=== PATIENT | female | born 1995 | race Hispanic/Latino ===

== ENCOUNTER 2019-04-07 18:28 | Inpatient (IN) | payer MEDICAID ==
--- NOTE | 2019-04-07 18:33 | Event Note ---
ED Screening Note ED Screening Note: BABY 03/31 BABY IN NICU BC 28 WEEKS- [facility] VAG DELIVERY BIPOLOAR SHIZO WITH PTSD SZ RX OFF MEDS ZOLOFT, LAMICTAL HAS APPNT NEXT WEEK This initial assessment/diagnostic orders/clinical plan/treatment(s) is/are subject to change based on patients health status, clinical progression and re-assessment by fellow clinical providers in the ED. Further treatment and workup at subsequent clinical providers discretion. Patient/guardian urged not to elope from the ED as their condition may be serious if not clinically assessed and managed. Initial orders include: UA LABS
[2019-04-07 19:17] LABS: Basophils % (Auto) 0.2 % (0.0-1.8); Eosinophils # (Auto) 0.2 K/mm3 (0.0-0.4); Eosinophils % (Auto) 1.3 % (0.0-4.3); Hematocrit 36.4 % (30.3-42.9); Hemoglobin 11.8 gm/dl (10.1-14.3); Lymphocytes # (Auto) 2.3 K/mm3 (1.2-5.4); Lymphocytes % (Auto) 13.3 % (13.4-35.0); Mean Corpuscular HGB Conc 33 % (30-34); Mean Corpuscular Volume 82 fl (79-97); Monocytes # (Auto) 0.9 K/mm3 (0.0-0.8); Monocytes % (Auto) 5.3 % (0.0-7.3); Platelet Count 392 K/mm3 (140-440); Red Blood Count 4.44 M/mm3 (3.65-5.03); Red Cell Distribution Width 17.1 % (13.2-15.2)
[2019-04-07 19:30] LABS: Bilirubin,Urine NEG (Negative); Blood,Urine LG (Negative); Color,Urine Yellow (Yellow); Mucus,Urine FEW /HPF
[2019-04-07 19:42] LABS: Alanine Aminotransferase 9 units/L (7-56); Albumin 3.3 g/dL (3.9-5); BUN/Creatinine Ratio 13; Blood Urea Nitrogen 9 mg/dL (7-17); Calcium 8.9 mg/dL (8.4-10.2); Hemolysis Index 5
[2019-04-07] MEDS ORDERED: NACL 0.9% 1000 ML 1,000 ML IV ONE (19:57)
[2019-04-07] MEDS ORDERED: ROCEPHIN/NS 1 GM/50 ML 1 GM/50 ML BAG IV ONE (20:18)
--- NOTE | 2019-04-07 21:13 | Emergency Department Report ---
<BERNIE NOVAK - Last Filed: 04/08/19 05:16> ED Abdominal Pain HPI - General Chief Complaint: Abdominal Pain Stated Complaint: ABD PAIN Time Seen by Provider: 04/07/19 18:31 Source: patient Mode of arrival: Ambulatory Limitations: No Limitations - History of Present Illness Initial Comments: 23-year-old female comes in complaining of abdominal pain and fever states that she is having pain for 2 days after having a baby. Patient reports that she's had a fever of 103 last night. Patient reports that she delivered on 03/31/2019 to a 28 week or that is still in NICU at [facility]. Patient is not breast-feeding she has a history of schizophrenia PTSD bipolar. Currently smoking headaches had no OB care on her . She is 4 para 4. Brought it back taken her gabapentin Tylenol and Motrin. She reports that she is having vaginal bleeding of clots. She has no primary care provider. MD Complaint: abdominal pain Onset/Timin -: days(s) Location: suprapubic Radiation: none Severity scale (0 -10): 7 Quality: cramping Improves With: nothing Worsens With: nothing Associated Symptoms: fever - Related Data Allergies Allergy/AdvReac Type Severity Reaction Status Date / Time No Known Allergies Allergy Unverified 04/07/19 18:29 ED Review of Systems Comment: All other systems reviewed and negative Constitutional: fever Gastrointestinal: abdominal pain Genitourinary: other (vaginal bleeding) ED Past Medical Hx - Past Medical History Hx Seizures: Yes - Surgical History Past Surgical History?: No - Social History Smoking Status: Current Every Day Smoker Substance Use Type: None ED Physical Exam - General Limitations: No Limitations General appearance: alert, in no apparent distress - Head Head exam: Present: atraumatic, normocephalic - Eye Eye exam: Present: normal appearance - ENT ENT exam: Present: mucous membranes moist - Respiratory Respiratory exam: Present: normal lung sounds bilaterally. Absent: respiratory distress - Cardiovascular Cardiovascular Exam: Present: tachycardia - GI/Abdominal GI/Abdominal exam: Present: soft, normal bowel sounds - Extremities Exam Extremities exam: Present: normal inspection - Neurological Exam Neurological exam: Present: alert, oriented X3, normal gait - Psychiatric Psychiatric exam: Present: normal affect, normal mood - Skin Skin exam: Present: warm, dry, intact, normal color. Absent: rash ED Medical Decision Making - Lab Data Result diagrams: 04/07/19 19:01 04/07/19 19:01 - Medical Decision Making 43-year-old female comes in for abdominal pain fever of delivery on 03/31/2019. Patient left AMA without signing paperwork and informing nursing staff. Patient had to be called back to inform her that she needs to be evaluated she has abnormal labs. Patient returned hour and a half later to continue with her workup. The patient has elevated WBCs elevated glucose elevated lactic acid urine shows elevated wbc's of 101. CT scan has been ultrasound shows no ovarian torsion and no acute processes. CT has been completely pending results. Dr. Dinorah Aranda hospitalist is aware of patient and waiting for results of CT to determine admission criteria. ED Disposition Clinical Impression: UTI (urinary tract infection) Qualifiers: Urinary tract infection type: acute cystitis Hematuria presence: without hematuria Qualified Code(s): N30.00 - Acute cystitis without hematuria Disposition: TO HOME OR SELFCARE Condition: Stable Instructions: Abdominal Pain (ED), Urinary Tract Infection in Women (ED) <WOODY XAVIER - Last Filed: 04/08/19 06:40> ED Review of Systems ROS: Stated complaint: ABD PAIN Other details as noted in HPI ED Course Vital Signs 04/07/19 18:33 Temperature 99.0 F Pulse Rate 111 H Respiratory 16 Rate Blood Pressure 113/77 O2 Sat by Pulse 100 Oximetry ED Medical Decision Making - Lab Data Result diagrams: 04/07/19 19:01 04/07/19 19:01 - Radiology Data Radiology results: report reviewed, image reviewed Ordering Physician: DWIGHT LEE Date of Service: 04/08/19 Procedure(s): CT abdomen pelvis w con Accession Number(s): [id number] cc: DWIGHT LEE CT abdomen pelvis w con INDICATION / CLINICAL INFORMATION: abd pain elevated white count. TECHNIQUE: All CT scans at this location are performed using CT dose reduction for ALARA by means of automated exposure control. COMPARISON: None available. FINDINGS: Limited lower thoracic images show no acute pulmonary abnormality. ABDOMEN: The gallbladder, liver, spleen and pancreas are normal. No urinary calculi, no hydronephrosis or perinephric fluid collections. Small bowel appears normal. No mesenteric or retroperitoneal adenopathy Pelvis: The appendix is normal There are no dependent fluid collections identified within the pelvis. No acute inflammatory findings. No significant skeletal abnormality. IMPRESSION: 1. No acute findings in the abdomen or pelvis. Signer Name: Eduardo Goyal MD Signed: 04/08/2019 5:14 AM Workstation Name: [id number] Transcribed By: GABY Dictated By: Eduardo Goyal MD Electronically Authenticated By: Eduardo Goyal MD Signed Date/Time: 04/08/19 0514 DD/ 0509 TD/TT: - Medical Decision Making pt requesting po at this time there is no n/v no fever , ct is normal , pt is admited to hospitalist, discussed same with patient pt verbalized agreement and understanding of discharge plan. Critical care attestation.: If time is entered above; I have spent that time in minutes in the direct care of this critically ill patient, excluding procedure time. ED Disposition Is pt being admited?: Yes Does the pt Need Aspirin: No Time of Disposition: 06:40
[2019-04-08] MEDS ORDERED: NACL 0.9% 1000 ML 1,000 ML ONE (00:23)
[2019-04-08] MEDS ORDERED: ROCEPHIN IM ONE (00:23)
--- NOTE | 2019-04-08 02:05 | Ultrasound Report ---
US pelvic complete INDICATION / CLINICAL INFORMATION: pelvic pain. COMPARISON: None available. FINDINGS: The uterus measures 12 cm. Myometrial echogenicity is homogeneous. The major stripe thickness is 12 mm. Both ovaries are demonstrated and appear normal morphologically. Normal ovarian blood flow is confirm ed. No fluid collections are demonstrated in the cul-de-sac. IMPRESSION: 1. Negative pelvic ultrasound. No evidence of ovarian torsion. Signer Name: Eduardo Goyal MD Signed: 04/08/2019 2:00 AM Workstation Name: [id number]
[2019-04-08] MEDS ORDERED: IBUPROFEN PO ONE ×2 (02:42→02:45)
--- NOTE | 2019-04-08 05:19 | Cat Scan Report ---
CT abdomen pelvis w con INDICATION / CLINICAL INFORMATION: abd pain elevated white count. TECHNIQUE: All CT scans at this location are performed using CT dose reduction for ALARA by means of automated e xposure control. COMPARISON: None available. FINDINGS: Limited lower thoracic images show no acute pulmonary abnormality. ABDOMEN: The gallbladder, liver, spleen and pancreas are normal. No urinary calculi, no hydronephrosis or perinephric fluid collections. Small bowel appears normal. No mesenteric or retroperitoneal adenopathy Pelvis: The appendix is normal There are no dependent fluid collections identified within the pelvis. No acute inflammatory findings . No significant skeletal abnormality. IMPRESSION: 1. No acute findings in the abdomen or pelvis. Signer Name: Eduardo Goyal MD Signed: 04/08/2019 5:14 AM Workstation Name: [id number]
[2019-04-08 05:24] LABS: Benzodiazepines Screen,Urine PRESUMPTIVE NEGATIVE; Cocaine Screen,Urine PRESUMPTIVE NEGATIVE; Methadone Screen,Urine PRESUMPTIVE NEGATIVE; Opiate Screen,Urine PRESUMPTIVE NEGATIVE
[2019-04-08] MEDS ORDERED: ZOFRAN IV PRN (05:57)
[2019-04-08] MEDS ORDERED: PERCOCET 5/325 PO PRN (05:57)
[2019-04-08] MEDS ORDERED: TYLENOL PO PRN (05:57)
[2019-04-08] MEDS ORDERED: SODIUM CHLORIDE FLUSH SYRINGE 10 ML IV PRN (05:57)
[2019-04-08] MEDS ORDERED: NACL 0.9% 1000 ML 1,000 ML IV SCH (06:00)
--- NOTE | 2019-04-08 06:05 | History and Physical Report ---
History of Present Illness Date of examination: 04/08/19 History of present illness: 23-year-old woman with no medical problems, status post deliver a baby one week ago comes emergency room with complaints of abdominal pain in the epigastric and lower abdomen which started 5 days ago. She describes it as sharp pain, in termittent every 5 minutes does not become constant, cannot identify exacerbating or relieving factors. Admits to dysuria, frequency. Has been having fever and has been taking Motrin and Tylenol Review of systems Constitutional: no weight loss Ears, eyes, nose, mouth and throat: no nasal congestion, no nasal discharge, no sinus pressure, no vision change, no red eye. Neck: No neck pain or rigidity. Cardiovascular: no palpitations, chest pain Respiratory: no cough, shortness of breath Gastrointestinal: no hematochezia, abdominal pain Genitourinary : , no hematuria Musculoskeletal: no joint swelling or muscle ache Integumentary: no rash, no pruritis Neurological: no parathesias, no focal weakness Endocrine: no cold or heat intolerance, no polyuria or polydipsia Hematologic/Lymphatic: no easy bruising, no easy bleeding, no gland swelling Allergic/Immunologic: no urticaria, no angioedema. PAST MEDICAL HISTORY: None PAST SURGICAL HISTORY: None SOCIAL HISTORY:+ alcohol, no drugs, smokes half pack a day FAMILY HISTORY: Hypertension Medications and Allergies Allergies Allergy/AdvReac Type Severity Reaction Status Date / Time No Known Allergies Allergy Unverified 04/07/19 18:29 Active Meds: Active Medications Acetaminophen (Tylenol) 650 mg PO Q4H PRN PRN Reason: Pain MILD(1-3)/Fever >100.5/KELLY Enoxaparin Sodium (Lovenox) 30 mg SUB-Q QDAY DIPESH Sodium Chloride (Nacl 0.9% 1000 Ml) 1,000 mls @ 125 mls/hr IV DIRECT DIPESH Ceftriaxone Sodium (Rocephin/Ns 1 Gm/50 Ml) 1 gm in 50 mls @ 100 mls/hr IV Q24HR DIPESH; Protocol Ondansetron HCl (Zofran) 4 mg IV Q8H PRN PRN Reason: Nausea And Vomiting Oxycodone/Acetaminophen (Percocet 5/325) 1 tab PO Q6H PRN PRN Reason: Pain, Moderate (4-6) Sodium Chloride (Sodium Chloride Flush Syringe 10 Ml) 10 ml IV BID DIPESH Sodium Chloride (Sodium Chloride Flush Syringe 10 Ml) 10 ml IV PRN PRN PRN Reason: LINE FLUSH Exam - Physical Exam Narrative exam: General Apperance: The patient lying in bed, breathing comfortable HEENT: Normocephalic, atraumatic. Pupils equally round and reactive to light, EOMI, no sclericterus or JVD or thyromegaly or nodule. , no carotid bruit, mucous membranes moist, no exudate or erythema Heart: S1-S2, regular is rhythm Lungs: Clear to auscultation bilaterally, breathing comfortable Abdomen: Positive bowel sounds, soft, tender in the epigastric and lower abdominal area, nondistended, no organomegaly Extremities: No edema cyanosis clubbing Skin: no rash, nodule, warm and dry Neuro: cranial nerves 2-12 intact, speech is fluent, motor/sensory intact - Constitutional Vitals: Temp Pulse Resp BP Pulse Ox 99.0 F 111 H 16 113/77 100 04/07/19 18:33 04/07/19 18:33 04/07/19 18:33 04/07/19 18:33 04/07/19 18:33 Results - Labs CBC & Chem 7: 04/07/19 19:01 04/07/19 19:01 Labs: Abnormal lab results 04/07/19 04/07/19 04/07/19 Range/Units 18:59 19:01 19:01 WBC 17.3 H (4.5-11.0) K/mm3 MCH 27 L (28-32) pg RDW 17.1 H (13.2-15.2) % Lymph % (Auto) 13.3 L (13.4-35.0) % [place] # 0.9 H (0.0-0.8) K/mm3 Seg Neutrophils % 79.9 H (40.0-70.0) % Seg Neutrophils # 13.8 H (1.8-7.7) K/mm3 Glucose 101 H (65-100) mg/dL Albumin 3.3 L (3.9-5) g/dL Urine WBC (Auto) 101.0 H (0.0-6.0) /HPF - Imaging and Cardiology CT scan - abdomen: report reviewed CT scan - pelvis: report reviewed Assessment and Plan Pelvic ultrasound reviewed Assessment Urinary Tract infection Plan Admit to medicine Start IV Rocephin, IV fluids, DVT prophylaxis
[2019-04-08 06:13] LABS: Amphetamine Screen,Urine PRESUMPTIVE POSITIVE; Cannabinoid Screen,Urine PRESUMPTIVE POSITIVE
[2019-04-08 06:49] VITALS: BP 114/50
[2019-04-08 06:59] LABS: BUN/Creatinine Ratio 15; Blood Urea Nitrogen 9 mg/dL (7-17); Calcium 8.4 mg/dL (8.4-10.2); Hemolysis Index 0
[2019-04-08 07:16] LABS: Eosinophils # (Auto) 0.1 K/mm3 (0.0-0.4); Eosinophils % (Auto) 0.5 % (0.0-4.3); Hematocrit 33.1 % (30.3-42.9); Hemoglobin 10.9 gm/dl (10.1-14.3); Lymphocytes # (Auto) 1.4 K/mm3 (1.2-5.4); Lymphocytes % (Auto) 7.8 % (13.4-35.0); Mean Corpuscular HGB Conc 33 % (30-34); Mean Corpuscular Volume 82 fl (79-97); Monocytes % (Auto) 5.7 % (0.0-7.3); Platelet Count 304 K/mm3 (140-440); Red Blood Count 4.06 M/mm3 (3.65-5.03); Red Cell Distribution Width 17.3 % (13.2-15.2)
[2019-04-08] MEDS ORDERED: ROCEPHIN/NS 1 GM/50 ML 1 GM/50 ML BAG IV SCH (10:00)
[2019-04-08] MEDS ORDERED: LOVENOX SUB-Q SCH (10:00)
[2019-04-08] MEDS ORDERED: SODIUM CHLORIDE FLUSH SYRINGE 10 ML IV SCH (10:00)
--- NOTE | 2019-04-08 14:42 | Discharge Summary ---
Providers - Providers Date of Admission: 04/08/19 05:57 Date of discharge: 04/08/19 Attending physician: HANNAH RADFORD [facility] IS[facility] Hospitalization Condition: Undetermined Hospital course: Patient is 23-year-old woman with no medical problems, status post delivered a baby one week earlier, presented to Emergency Department wiith complaints of abdominal pain in the epigastric and lower abdomen which started 5 days ago. She describes it as sharp pain, intermittent every 5 minutes. She also admits to fever and dysuria. Urialysis showed UTI. She was started on Ceftriaxone iv and admitted. However few hours later she signed against medical advice and left hospital without completing treatment. Disposition: [id number] LEFT AGAINST MED ADVICE - Discharge Diagnoses (1) UTI (urinary tract infection) Status: Acute Qualifiers: Urinary tract infection type: acute cystitis Core Measure Documentation - Palliative Care Palliative Care/ Comfort Measures: Not Applicable - Core Measures Any of the following diagnoses?: none Exam - Constitutional Vitals: Temp Pulse Resp BP Pulse Ox 98.4 F 84 18 114/50 99 04/08/19 06:47 04/08/19 06:47 04/08/19 09:03 04/08/19 06:47 04/08/19 09:03 Plan Follow up with: KIARA MATTHEW MD [Primary Care Provider] - 7 Days Forms: AMA Form
--- NOTE | 2019-04-08 14:42 | Event Note ---
Date: 04/08/19 Patient left against medical advice before I could see her.
== END 2019-04-08 10:30 | disposition left against medical advice (07) | DRG 776 ==
LOC: ED 18:28 → 3A 04-08 05:57
PROVIDERS: ADMIT Internal Medicine; ATTEND Internal Medicine
DX: O86.22 Infection of bladder following delivery (principal); Z53.21 Procedure and treatment not carried out due to patient leaving prior to being seen by health care provider; F20.9 Schizophrenia, unspecified; F17.200 Nicotine dependence, unspecified, uncomplicated; Z82.49 Family history of ischemic heart disease and other diseases of the circulatory system
CPT/HCPCS: 36415; 74177; 76856; 80048; 80053; 80307; 81001; 82140; 85025; 87040; 96365; G0378; J0696; J2405; J7030; Q9967